=== PATIENT | female | born 1990 | race African-American/Black ===

== ENCOUNTER 2017-02-16 05:17 | Day surgery (SDC) | payer BC ==
[~2017-02-16] VITALS: Ht 170.2 cm; Wt 125.2 kg
[~2017-02-16 05:17] MED LIST: APAP500 PO; MOBIC15 MG PO; NEXPLANON68 MG SQ
[2017-02-16 13:00] VITALS: BP 109/46
[2017-02-16 18:35] VITALS: BP 109/46
[2017-02-16 18:50] VITALS: BP 109/46
[2017-02-16 18:52] VITALS: BP 109/46
[2017-02-16 18:58] VITALS: BP 109/46
== END 2017-02-16 20:00 | disposition home or self-care (01) ==
LOC: OR 05:17 → TBA 05:17 → OR 09:27
DX: M76.821 Posterior tibial tendinitis, right leg (principal); Q66.6 Other congenital valgus deformities of feet; I10 Essential (primary) hypertension; E11.9 Type 2 diabetes mellitus without complications; E66.09 Other obesity due to excess calories; Z98.890 Other specified postprocedural states
CPT/HCPCS: 50010; 50101; 50386; 51291; 51412; 51741; 53010; 55430; 56526; 56527; 56760; 57091; 62110; 62900; 64037; 70005